=== PATIENT | female | born 1980 ===

== ENCOUNTER → 2018-12-15 21:18 | Outpatient (REF) | payer OTHER, SELFPAY ==
[2018-12-15 22:22] LABS: Basophils Absolute Auto 0 /uL (0-100); Basophils Percent Auto 0.6 % (0-2); Eosinophils Absolute Auto 200 /uL (0-450); Eosinophils Percent Auto 4.9 % (2-4); Hematocrit 33.7 % (36-46); Hemoglobin 10.7 g/dL (12.0-16.0); Lymphocytes Absolute Auto 1200 /uL (1100-4500); Lymphocytes Percent Auto 29.9 % (25-40); Mean Corpuscular HGB Conc 31.9 % (30-36); Mean Corpuscular Hemoglobin 25.8 PG (26-34); Mean Corpuscular Volume 80.9 fL (80-100); Monocytes Absolute Auto 300 /uL (0-900); Monocytes Percent Auto 8.4 % (3-14); Neutrophils Absolute Auto 2200 /uL (1500-7000); Neutrophils Percent Auto 56.2 % (50-75); Platelet Count 270 X10^3/uL (150-400); Red Blood Cell Count 4.17 X10^6/uL (4.0-5.2); Red Cell Distribution Width 21.2 % (11.6-14.8); White Blood Cell Count 3.9 X10^3/uL (4.5-11.0)
[2018-12-15 22:23] LABS: Add Manual Diff / Slide Review SLIDE REVIEW
[2018-12-15 23:40] LABS: Alanine Aminotransferase 27 IU/L (9-52); Albumin 4.5 g/dL (3.5-5.0); Albumin Globulin Ratio 1.1 (1.0-2.8); Alkaline Phosphatase 76 U/L (38-126); Aspartate Aminotransferase 27 IU/L (14-36); Bilirubin Total 1.4 mg/dL (0.2-1.3); Blood Urea Nitrogen 14 mg/dL (7-17); Calcium 9.9 mg/dL (8.4-10.2); Carbon Dioxide 28 mmol/L (22-32); Chloride 101 mmol/L (98-107); Estimated Glomerular Filt Rate > 60.0 mL/min (>60); Globulin 4.1 g/dL (1.7-4.1); Glucose 84 mg/dL (70-100); HEMOLYSIS < 15 (0-50); Potassium 3.9 mmol/L (3.4-5.1); Sodium 141 mmol/L (137-145); Total Protein 8.6 g/dL (6.3-8.2)
[2018-12-16 00:15] LABS: Ferritin 16.7 ng/mL (6.27-137)
[2018-12-16 03:46] LABS: Anisocytosis 3+; Hypochromasia 1+; Ovalocytes 1+
[2018-12-16 03:47] LABS: Schistocytes 1+
[2018-12-16 05:11] LABS: Free T3, Triiodothyronine Free 3.08 pg/mL (2.77-5.27); Free T4, Direct Thyroxine 1.13 ng/dL (0.78-2.19)
[2018-12-16 05:24] LABS: Thyroid Stimulating Hormone 2.34 uIU/mL (0.47-4.68)
[2018-12-19 15:03] LABS: RPR Screen Nonreactive (Nonreactive)
[2018-12-19 18:47] LABS: HIV Ag/Ab, 4th Gen Nonreactive (Nonreactive)
== END ==
LOC: LAB 21:18
PROVIDERS: Visit Provider Naturopath
DX: E07.81 Sick-euthyroid syndrome (principal); E61.1 Iron deficiency; N76.1 Subacute and chronic vaginitis; N93.8 Other specified abnormal uterine and vaginal bleeding
CPT/HCPCS: 36415; 80053; 82728; 84439; 84443; 84481; 85025; 86592; 86695; 86696; 86703; 87491; 87591; 87661; 87798; 87801